=== PATIENT | male | born 1980 | race Two or more races ===

== ENCOUNTER 2016-10-02 22:51 | Emergency (ER) | payer SELFPAY ==
[~2016-10-02] VITALS: Ht 175.3 cm; Wt 83.9 kg
== END 2016-10-03 00:17 | disposition home or self-care (01) ==
LOC: CFTX 22:51 → CED 22:51 → CFTX 23:59
DX: H10.9 Unspecified conjunctivitis (principal); H11.002 Unspecified pterygium of left eye; F17.210 Nicotine dependence, cigarettes, uncomplicated
CPT/HCPCS: 99282